=== PATIENT | female | born 1990 | race Caucasian/White ===

== ENCOUNTER → 2016-08-05 | Outpatient (CLI) | payer MEDICAID ==
[~2016-08-05] MED LIST: MOTRIN800 MG PO; PERCOCET 5-3251 EACH PO; PREFERA OB TAB1 EACH PO; PROVENTIL OR V6.7 GM INH; SURFAK240 MG PO; TYLENOL325 MG PO
== END | disposition disaster alternative care site (69) ==
LOC: GLAB 08:17
DX: R73.02 Impaired glucose tolerance (oral) (principal)

== ENCOUNTER 2016-10-06 19:10 | Outpatient (CLI) | payer MEDICAID ==
[2016-10-06] MEDS ORDERED: PREFERA OB TAB1 EACH PO (20:23)
== END 2016-10-06 21:30 | disposition disaster alternative care site (69) ==
LOC: GOBS 19:10 → GOBM 19:10
DX: O47.1 False labor at or after 37 completed weeks of gestation (principal); Z3A.37 37 weeks gestation of pregnancy
CPT/HCPCS: G0463

== ENCOUNTER 2016-10-15 15:38 | Outpatient (CLI) | payer MEDICAID ==
[~2016-10-15] VITALS: Ht 165.1 cm; Wt 93.0 kg
[~2016-10-15 15:38] MED LIST changes: -MOTRIN800 MG PO; -PERCOCET 5-3251 EACH PO; -PROVENTIL OR V6.7 GM INH; -SURFAK240 MG PO; -TYLENOL325 MG PO
[2016-10-15] MEDS ORDERED: PROVENTIL OR V6.7 GM INH (16:24)
[2016-10-16] MEDS ORDERED: TYLENOL325 MG PO (07:46)
== END 2016-10-15 20:25 | disposition disaster alternative care site (69) ==
LOC: GOBM 15:38 → GOBS 15:38 → GOBM 20:25
DX: O47.1 False labor at or after 37 completed weeks of gestation (principal); Z3A.38 38 weeks gestation of pregnancy
CPT/HCPCS: G0463

== ENCOUNTER 2016-10-16 07:10 | Inpatient (IN) | payer MEDICAID ==
[~2016-10-16] VITALS: Ht 165.1 cm; Wt 92.3 kg
--- NOTE | ~2016-10-16 | OR ---
[facility]: [facility] AGE: 26 Y [address] ROOM: [place] [id number] LOCATION: GOBS ADMIT DATE: 10/16/2016 OR/Procedure Report DISCHARGE DATE: FAMILY PHYSICIAN: EZIO PA MD ATTENDING PHYSICIAN: EZIO PA SURGEON: Ezio Pa MD WAREHOUSE REPRESENTATIVE: DATE OF PROCEDURE: 10/16/2016 PREOPERATIVE DIAGNOSES: 1. Intrauterine at 38 weeks and 4 days. 2. Active labor. 3. Insufficient care. 4. Tobacco abuse. 5. Marijuana abuse. 6. Thick meconium. POSTOPERATIVE DIAGNOSES: 1. Intrauterine at 38 weeks and 4 days. 2. Active labor. 3. Insufficient care. 4. Tobacco abuse. 5. Marijuana abuse. 6. Thick meconium. PROCEDURE PERFORMED: Spontaneous vaginal delivery over intact perineum. ANESTHESIA: Epidural. FINDINGS: Viable female with Apgars of 8 and 9 and weight of 6 pounds 5 ounces. Placenta intact with three-vessel cord. No cervical, vaginal, or perineal lacerations. ESTIMATED BLOOD LOSS: 300 mL. COMPLICATIONS: None. INDICATIONS: The patient is a 26-year-old G7, P 0-0-6-0 with intrauterine at 38 weeks and 4 days, who presented to Labor and Delivery this morning, who was found to be 4 cm dilated. She had previously been seen and I performed and was found to be 2.5 cm dilated. She progressed to 5 cm and was destiny regularly and request an epidural. GBS was negative. She had artificial rupture of membranes at 5 cm of clear fluid. She progressed to 680 and - 1 but did not change control coordinator an additional 2 hours; therefore, Pitocin was started for augmentation. The patient had progress to complete and started PAT[facility]'S NAME: [facility] AGE: 26 Y [address] ROOM: [place] [id number] LOCATION: GOBS ADMIT DATE: 10/16/2016 OR/Procedure Report DISCHARGE DATE: FAMILY PHYSICIAN: EZIO PA MD ATTENDING PHYSICIAN: EZIO PA maternal expulsive efforts throughout her labor course. Her fluid had been clear, however, was starting maternal expulsive efforts and it was noted to be meconium stained fix, therefore, the NICU was notified to be present for delivery. DESCRIPTION OF PROCEDURE: The patient was placed in dorsal lithotomy position. She was prepped and draped in the usual fashion. With maternal expulsive effort, the head was delivered in the FIDEL position. The anterior shoulder delivered followed by remainder of the fetus. The cord was clamped and cut and the infant was handed to the waiting NICU attendants. Cord blood was obtained. The placenta then delivered spontaneously intact. Three-vessel cord was noted. Cervix, vagina, and perineum were inspected and noted to be hemostatic. Instruments, sponge, and needle counts correct at the conclusion of the case. DISPOSITION: Mom stable, baby in room with mom. MD LAYLA GOLDBERG/joel /[id number] d: 10/17/16 0157 t: 10/23/16 1220, OPERATIVE SUMMARY
[~2016-10-16 07:10] MED LIST changes: +PROVENTIL OR V6.7 GM INH
[2016-10-16] MEDS ORDERED: TYLENOL325 MG PO (07:46)
[2016-10-16 08:41] LABS: BASOPHIL # 0.1 K/uL (0.0-0.2); BASOPHIL % 0.4 %; EOSINOPHIL # 0.3 K/uL (0.0-0.5); EOSINOPHIL % 2.2 %; HEMATOCRIT 35.9 % (33.0-46.0); HEMOGLOBIN 11.9 g/dL (11.0-15.0); IMMATURE GRANULOCYTE # 0.1 K/uL (0.0-0.3); IMMATURE GRANULOCYTE % 0.6 %; LYMPHOCYTE % 21.4 %; MCH 29.1 pg (27.0-34.0); MCHC 33.1 gm/dL (32.0-36.5); MCV 87.8 fl (83.0-98.0); MONOCYTE # 1.1 K/uL (0.0-1.0); MONOCYTE % 8.1 %; MPV 11.6 fl (9.4-12.4); NEUTROPHIL # (ANC) 9.5 K/uL (1.8-7.8); NEUTROPHIL % 67.3 %; NRBC % 0 /100WBC (0-0.00); PLATELET COUNT 255 K/uL (150-450); RBC 4.09 M/uL (3.50-5.00); RDW-CV 14.4 % (11.9-14.6); WBC 14.2 K/uL (4.0-11.0)
[2016-10-17 05:19] LABS: BASOPHIL # 0.1 K/uL (0.0-0.2); BASOPHIL % 0.3 %; EOSINOPHIL % 0.2 %; HEMATOCRIT 30.9 % (33.0-46.0); HEMOGLOBIN 10.2 g/dL (11.0-15.0); IMMATURE GRANULOCYTE # 0.1 K/uL (0.0-0.3); IMMATURE GRANULOCYTE % 0.5 %; LYMPHOCYTE # 2.5 K/uL (0.8-4.0); LYMPHOCYTE % 14.4 %; MCH 29.1 pg (27.0-34.0); MONOCYTE # 1.3 K/uL (0.0-1.0); MONOCYTE % 7.2 %; MPV 11.3 fl (9.4-12.4); NEUTROPHIL # (ANC) 13.6 K/uL (1.8-7.8); NEUTROPHIL % 77.4 %; NRBC % 0 /100WBC (0-0.00); PLATELET COUNT 218 K/uL (150-450); RBC 3.51 M/uL (3.50-5.00); RDW-CV 14.5 % (11.9-14.6)
[2016-10-17 05:20] LABS: WBC 17.6 K/uL (4.0-11.0)
--- NOTE | 2016-10-17 05:42 | NUR ---
VSS. FUNDUS FIRM, -1, SMALL FLOW. VOIDING WITHOUT DIFFICULTY. LAST HAD PERC/MOTRIN AT 0028. SL LOCKED TO L WRIST. WILL NEED MMR BEFORE DISMISSAL.
--- NOTE | 2016-10-17 16:19 | NUR ---
Met patient in room while her significant other, Ronak, slept. Patient states that Ronda is her first child. She states they live in [place] with her Ronak's mom. She states that she is not currently working but is going to look for employment in a few months. She says that Ronak's cousin has agreed to watch baby Ronda if Florence finds a job. She states she is not connected with [facility] yet, but plans to contact them which I encouraged her to do. She states they have all the necessary baby supplies. I informed her that she needs to contact Medicaid and let them know that baby was born. I also gave her a list of resources in [place]. I discussed with her signs and symptoms of post depression. I gave her the reading material to refer to. She did indicate she has suffered depression in the past and knows what to watch for. I instructed her to contact her doctor if she experiences any of the sign for more than 24 hours. No other needs at this time.
--- NOTE | 2016-10-17 17:24 | NUR ---
Last VS: T:98.5 P:77 R: 18 BP: 118/70 Pain ratin Last pain med: Percocet Medicated at: 1425 Effective: Yes Breasts: SOFT Nipples: INTACT Fundus: FIRM Lochia: SMALL-MOD Epis/Perineum: NONE, INTACT Voiding well: Y Significant event: *.UP AD LAILA, WALKS DOWNSTAIRS TO SMOKE FREQ.~BRINGS BABY TO [employer]. LAST MOTRIN TAKEN @ 0805.
--- NOTE | 2016-10-18 05:47 | NUR ---
VSS, goes outside frequently to smoke, last had Percocet at 2230
[2016-10-18] MEDS ORDERED: MOTRIN800 MG PO (11:55)
[2016-10-18] MEDS ORDERED: PERCOCET 5-3251 EACH PO (11:55)
[2016-10-18] MEDS ORDERED: SURFAK240 MG PO (11:55)
== END 2016-10-18 14:22 | disposition disaster alternative care site (69) | DRG 775 ==
LOC: GOBS 07:10 → GOBM 07:10 → GOBS 09:50
PROVIDERS: ADMIT Obstetrics & Gynecology
PROC: 10E0XZZ Delivery of Products of Conception, External Approach (ICD-10-PCS; principal; 2016-10-16)
PROC: 10907ZC Drainage of Amniotic Fluid, Therapeutic from Products of Conception, Via Natural or Artificial Opening (ICD-10-PCS; 2016-10-16)
DX: O77.0 Labor and delivery complicated by meconium in amniotic fluid (principal); O99.324 Drug use complicating childbirth; O99.334 Smoking (tobacco) complicating childbirth; F17.200 Nicotine dependence, unspecified, uncomplicated; Z3A.38 38 weeks gestation of pregnancy; Z37.0 Single live birth; F12.10 Cannabis abuse, uncomplicated; O09.33 Supervision of pregnancy with insufficient antenatal care, third trimester
CPT/HCPCS: G0463; J2590; J3010; J7120